=== PATIENT | male | born 1950 | race Caucasian/White ===

== ENCOUNTER 2017-10-16 08:06 | Emergency (ER) | payer OTHER ==
[~2017-10-16] VITALS: Ht 177.8 cm; Wt 90.0 kg
[~2017-10-16 08:06] MED LIST: ACET-784 PO; ADV500 IH; ALBU0.212 IH; ALBU8.5H8 IH; ASPI81TA39 PO; CARV25TA32 PO; COMBIH IH; DOCU250C91 PO; FERR-89 PO; FOLI20CA PO; FURO40I IM; INSLAN SQ; INSU100C6 SQ; MONT10TA24 PO; OMEP20CA4 PO; POTA99TA15 PO; PRED10TA3 PO; SIMV40TA5 PO; TIOT185 IH
[2017-10-16] MEDS ORDERED: DEXTROSE 50%-WATER 25 GM/50 ML SYRINGE IVP ONE ×3 (08:12→10:45)
[2017-10-16 08:38] LABS: BASOPHILS % (AUTO) 0.5 % (0.0-2.0); EOSINOPHILS % (AUTO) 4.3 % (1.0-6.0); HEMATOCRIT 32.3 % (41-53); HEMOGLOBIN 10.5 g/dL (13.5-17.5); LYMPHOCYTES # (AUTO) 1.6 K/uL (1.0-4.8); LYMPHOCYTES % (AUTO) 16.6 % (22.0-44.0); MEAN CORPUSCULAR HEMOGLOBIN 29.8 pg (26.0-34.0); MEAN CORPUSCULAR HGB CONC 32.5 G/dL (31.0-37.0); MEAN CORPUSCULAR VOLUME 92 fL (80-100); MONOCYTES # (AUTO) 0.7 K/uL (0.1-1.0); MONOCYTES % (AUTO) 6.9 % (2.0-9.0); NEUTROPHILS # (AUTO) 6.8 K/uL (1.8-7.7); NEUTROPHILS % (AUTO) 71.7 % (40.0-70.0); PLATELET COUNT (AUTO) 119 K/uL (150-450); RED BLOOD CELL COUNT(AUTO) 3.53 MIL/uL (4.50-5.90)
[2017-10-16] MEDS ORDERED: SODIUM CHLORIDE 0.9% 1,000 ML IV ONE (08:45)
[2017-10-16 08:49] LABS: CALCIUM, TOTAL 8.2 mg/dL (8.8-10.5); CREATININE 1.44 mg/dL (0.60-1.30); POTASSIUM 3.7 mmol/L (3.5-5.1)
[2017-10-16 08:55] LABS: ALBUMIN 3.4 g/dL (3.4-5.0); BILIRUBIN,TOTAL 0.2 mg/dL (0.1-1.0); TOTAL PROTEIN, SERUM 6.8 g/dL (6.4-8.2)
[2017-10-16 08:58] LABS: GLUCOSE,POINT OF CARE 172 MG/DL (70-110)
[2017-10-16 09:10] LABS: APPEARANCE,URINE CLOUDY (CLEAR); BILIRUBIN,URINE NEGATIVE (NEGATIVE); GLUCOSE, URINE (UA) NEGATIVE (NEGATIVE); KETONES,URINE NEGATIVE (NEGATIVE); LEUKOCYTE ESTERASE ,URINE MODERATE (NEGATIVE); NITRATE,URINE NEGATIVE (NEGATIVE); OCCULT BLOOD,URINE NEGATIVE (NEGATIVE); PROTEIN,URINE NEGATIVE (NEGATIVE); UROBILINOGEN,URINE 0.2 mg/dL (<=1.0)
[2017-10-16] MEDS ORDERED: ALBUTEROL SULFATE 2.5 MG/0.5 ML NEB SOLUTION NEB ONE (09:15)
[2017-10-16] MEDS ORDERED: IPRATROPIUM BROMIDE 0.5 MG/2.5 ML NEB SOLUTION NEB ONE (09:15)
[2017-10-16] MEDS ORDERED: CefTRIAXone SODIUM 1 GM/VIAL IV ONE (09:15)
[2017-10-16 09:25] LABS: RBC,URINE 0-2 /HPF (0-2)
[2017-10-16 09:26] LABS: BACTERIA,URINE Rare /HPF (None Seen); SQUAMOUS EPITHELIAL CELL,UR None Seen /LPF (None Seen); WBC,URINE 51-100 /HPF (0-5)
[2017-10-16 10:24] LABS: GLUCOSE,POINT OF CARE 66 MG/DL (70-110)
[2017-10-16 11:29] LABS: GLUCOSE,POINT OF CARE 106 MG/DL (70-110)
[2017-10-16 12:24] LABS: GLUCOSE,POINT OF CARE 68 MG/DL (70-110)
[2017-10-16 13:29] LABS: GLUCOSE,POINT OF CARE 60 MG/DL (70-110)
[2017-10-16] MEDS ORDERED: DEXTROSE 5%-0.45% SODIUM CHL 1,000 ML IV ONE (13:45)
[2017-10-16 14:19] LABS: GLUCOSE,POINT OF CARE 149 MG/DL (70-110)
[2017-10-16 15:29] LABS: GLUCOSE,POINT OF CARE 94 MG/DL (70-110)
[2017-10-16 15:40] VITALS: BP 110/61
== END 2017-10-16 16:28 | disposition short-term general hospital (02) ==
LOC: EMS 08:08
DX: E11.649 Type 2 diabetes mellitus with hypoglycemia without coma (principal); I95.9 Hypotension, unspecified; R06.02 Shortness of breath; I50.9 Heart failure, unspecified; J44.9 Chronic obstructive pulmonary disease, unspecified; I25.2 Old myocardial infarction; Z79.4 Long term (current) use of insulin; Z87.891 Personal history of nicotine dependence
CPT/HCPCS: 36415; 71045; 80053; 81001; 82962; 83605; 84484; 85025; 87040; 87077; 87086; 87186; 94640; 94660; 96361; 96374; 96375; 96376; 99291; J0696; J7030